=== PATIENT | female | born 1950 | race Two or more races ===

== ENCOUNTER → 2016-11-07 | Outpatient (CLI) | payer OTHER | LOC: CIMAGING 08:02 | DX: Z12.31 Encounter for screening mammogram for malignant neoplasm of breast (principal); Z80.3 Family history of malignant neoplasm of breast | CPT/HCPCS: G0202 ==

== ENCOUNTER → 2018-10-17 | Outpatient (CLI) | payer OTHER | LOC: CIMAGING 08:21 | PROVIDERS: ATTEND Internal Medicine | DX: Z12.31 Encounter for screening mammogram for malignant neoplasm of breast (principal); Z80.3 Family history of malignant neoplasm of breast ==

== ENCOUNTER → 2019-02-04 | Outpatient (CLI) | payer OTHER | LOC: CIMAGING 10:16 ==